=== PATIENT | male | born 1995 | race Caucasian/White ===

== ENCOUNTER → 2017-11-09 | Outpatient (CLI) | payer BC ==
[~2017-11-09] MED LIST: OXYC-865 PO; PRED-1 PO
== END ==
LOC: LAB 10:22
PROVIDERS: ATTEND Internal Medicine Nephrology
DX: N18.4 Chronic kidney disease, stage 4 (severe) (principal); E87.5 Hyperkalemia
CPT/HCPCS: 36415; 82040; 82310; 82374; 82435; 82565; 82570; 82947; 84100; 84132; 84156; 84295; 84520

== ENCOUNTER → 2017-12-07 | Outpatient (CLI) | payer BC | LOC: LAB 10:21 | PROVIDERS: ATTEND Internal Medicine Nephrology | DX: N18.4 Chronic kidney disease, stage 4 (severe) (principal); E78.5 Hyperlipidemia, unspecified | CPT/HCPCS: 36415; 82040; 82310; 82374; 82435; 82565; 82570; 82947; 84100; 84132; 84156; 84295; 84520 ==

== ENCOUNTER → 2018-03-23 | Outpatient (CLI) | payer BC | LOC: LAB 13:34 | PROVIDERS: ATTEND Internal Medicine Nephrology | DX: E87.5 Hyperkalemia (principal); N18.4 Chronic kidney disease, stage 4 (severe) | CPT/HCPCS: 36415; 82040; 82310; 82374; 82435; 82565; 82947; 84100; 84132; 84295; 84520 ==

== ENCOUNTER → 2018-06-03 | Outpatient (CLI) | payer BC | LOC: LAB 10:32 | PROVIDERS: ATTEND Internal Medicine Nephrology | DX: N18.4 Chronic kidney disease, stage 4 (severe) (principal); N25.81 Secondary hyperparathyroidism of renal origin; D83.1 Common variable immunodeficiency with predominant immunoregulatory T-cell disorders; E87.2 Acidosis | CPT/HCPCS: 36415; 82040; 82306; 82570; 82728; 83540; 83550; 83970; 84100; 84156; 85027 ==

== ENCOUNTER → 2018-06-03 | Outpatient (CLI) | payer BC | LOC: LAB 10:31 | PROVIDERS: ATTEND Internal Medicine | DX: E78.00 Pure hypercholesterolemia, unspecified (principal); Z79.899 Other long term (current) drug therapy | CPT/HCPCS: 82040; 82247; 82310; 82374; 82435; 82465; 82565; 82947; 83718; 84075; 84132; 84155; 84295; 84450; 84460; 84478; 84520 ==

== ENCOUNTER → 2018-09-02 | Outpatient (CLI) | payer BC | LOC: LAB 09:44 | PROVIDERS: ATTEND Internal Medicine Nephrology | DX: I12.9 Hypertensive chronic kidney disease with stage 1 through stage 4 chronic kidney disease, or unspecified chronic kidney disease (principal); N18.4 Chronic kidney disease, stage 4 (severe); N25.81 Secondary hyperparathyroidism of renal origin; D63.1 Anemia in chronic kidney disease; E87.2 Acidosis | CPT/HCPCS: 36415; 82040; 82306; 82310; 82374; 82435; 82565; 82570; 82728; 82947; 83540; 83550; 83970; 84100; 84132; 84156; 84295; 84520; 85027 ==

== ENCOUNTER → 2018-11-08 | Outpatient (CLI) | payer BC | LOC: LAB 13:19 | PROVIDERS: ATTEND Internal Medicine Nephrology | DX: E87.5 Hyperkalemia (principal); N18.4 Chronic kidney disease, stage 4 (severe) | CPT/HCPCS: 36415; 82040; 82310; 82374; 82435; 82565; 82947; 84100; 84132; 84295; 84520 ==

== ENCOUNTER → 2018-12-01 | Outpatient (CLI) | payer BC | LOC: LAB 08:40 | PROVIDERS: ATTEND Internal Medicine Nephrology | DX: N18.4 Chronic kidney disease, stage 4 (severe) (principal); E87.5 Hyperkalemia | CPT/HCPCS: 36415; 82040; 82310; 82374; 82435; 82565; 82570; 82947; 84100; 84132; 84156; 84295; 84520 ==

== ENCOUNTER → 2019-01-19 | Outpatient (CLI) | payer BC | LOC: LAB 09:29 | PROVIDERS: ATTEND Internal Medicine Nephrology | DX: I12.9 Hypertensive chronic kidney disease with stage 1 through stage 4 chronic kidney disease, or unspecified chronic kidney disease (principal); N18.4 Chronic kidney disease, stage 4 (severe); N25.81 Secondary hyperparathyroidism of renal origin; D63.1 Anemia in chronic kidney disease; E87.2 Acidosis | CPT/HCPCS: 36415; 82040; 82306; 82310; 82374; 82435; 82565; 82570; 82728; 82947; 83540; 83550; 83970; 84100; 84132; 84156; 84295; 84520; 85027 ==

== ENCOUNTER → 2019-02-25 | Outpatient (CLI) | payer BC | LOC: LAB 12:04 | PROVIDERS: ATTEND Internal Medicine Nephrology | DX: D63.1 Anemia in chronic kidney disease (principal); N18.4 Chronic kidney disease, stage 4 (severe); N25.81 Secondary hyperparathyroidism of renal origin | CPT/HCPCS: 36415; 82040; 82306; 82310; 82374; 82435; 82565; 82570; 82728; 82947; 83540; 83550; 83970; 84100; 84132; 84156; 84295; 84520; 85027 ==

== ENCOUNTER → 2019-03-24 | Outpatient (CLI) | payer BC | LOC: LAB 10:24 | PROVIDERS: ATTEND Internal Medicine Nephrology | DX: I12.9 Hypertensive chronic kidney disease with stage 1 through stage 4 chronic kidney disease, or unspecified chronic kidney disease (principal); E78.5 Hyperlipidemia, unspecified; N18.4 Chronic kidney disease, stage 4 (severe); E87.2 Acidosis | CPT/HCPCS: 36415; 82040; 82310; 82374; 82435; 82465; 82565; 82947; 83718; 84100; 84132; 84295; 84478; 84520 ==

== ENCOUNTER → 2019-05-12 | Outpatient (CLI) | payer BC | LOC: LAB 09:25 | PROVIDERS: ATTEND Internal Medicine Nephrology | DX: I12.9 Hypertensive chronic kidney disease with stage 1 through stage 4 chronic kidney disease, or unspecified chronic kidney disease (principal); N18.4 Chronic kidney disease, stage 4 (severe); N25.81 Secondary hyperparathyroidism of renal origin; D63.1 Anemia in chronic kidney disease; E87.2 Acidosis | CPT/HCPCS: 36415; 82040; 82306; 82310; 82374; 82435; 82565; 82570; 82728; 82947; 83540; 83550; 83970; 84100; 84132; 84156; 84295; 84520; 85027 ==

== ENCOUNTER → 2019-06-09 | Outpatient (CLI) | payer BC | LOC: LAB 15:50 | PROVIDERS: ATTEND Internal Medicine Nephrology | DX: N18.4 Chronic kidney disease, stage 4 (severe) (principal) | CPT/HCPCS: 36415; 82040; 82310; 82374; 82435; 82565; 82947; 84100; 84132; 84295; 84520 ==